=== PATIENT | male | born 1965 | race Caucasian/White ===

== ENCOUNTER 2023-07-28 15:34 | Emergency (ER) | payer OTHER ==
[~2023-07-28] VITALS: Ht 185.4 cm; Wt 109.1 kg
[2023-07-28] MEDS ORDERED: diphenhydrAMINE 50 mg/ml inj IM ONE (16:10)
[2023-07-28] MEDS ORDERED: LORazepam 2 mg/ml vial IM ONE (16:10)
[2023-07-28] MEDS ORDERED: OLANZapine **IM** 10 mg inj. IM ONE (16:10)
[2023-07-28] MEDS ORDERED: normal saline 1000ML IV soln IVB ONE ×2 (16:20→16:30)
[2023-07-28] MEDS ORDERED: aspirin 81mg tab.chew PO ONE (16:40)
[2023-07-28] MEDS ORDERED: acetaminophen 1,000mg/100ml IV 100 ML IV ONE (16:55)
[2023-07-28] MEDS ORDERED: diltiazem 5mg/ml 5ml inj. IV ONE (17:00)
[2023-07-28] MEDS ORDERED: aspirin 300mg supp.rect RC ONE (17:05)
[2023-07-28 17:48] LABS: BASOPHILS % (AUTO) 0.1 % (0-1); EOSINOPHILS % (AUTO) 0 % (0-6); LYMPHOCYTES # (AUTO) 0.2 X10'3 (1.1-4.8); MEAN CORPUSCULAR VOLUME 93.9 FL (78-98); MONOCYTES # (AUTO) 1.1 X10'3 (0-0.9); MONOCYTES % (AUTO) 6.2 % (2-12); RED CELL DISTRIBUTION WIDTH 12.2 % (11.5-14.5)
[2023-07-28 17:51] LABS: HEMATOCRIT 48.8 % (42.0-52.0); HEMOGLOBIN 16.6 g/dl (14.0-17.9); LYMPHOCYTES % (AUTO) 1.2 % (21-51); MEAN CORPUSCULAR HEMOGLOBIN 31.9 PG (27.0-31.0); MEAN CORPUSCULAR HGB CONC 33.9 g/dL (33.0-36.5); MEAN PLATELET VOLUME 8.4 FL (7.4-10.4); NEUTROPHILS # (AUTO) 16.4 X10'3 (1.8-7.7); NEUTROPHILS % (AUTO) 92.5 % (42-75); PLATELET COUNT 273 X10'3 (140-440); WHITE BLOOD COUNT 17.7 X10'3 (4.5-11.0)
[2023-07-28 17:57] LABS: ALANINE AMINOTRANSFERASE 50 U/L (12-78); ALBUMIN 4.5 G/DL (3.4-5.0); ALBUMIN/GLOBULIN RATIO 1.5 (1.1-1.5); ALKALINE PHOSPHATASE 65 IU/L (46-116); ANION GAP 14 (8-16); ASPARTATE AMINO TRANSFERASE 61 U/L (10-37); BILIRUBIN,TOTAL 0.9 MG/DL (0.1-1.0); BLOOD UREA NITROGEN 15 MG/DL (7-18); BUN/CREATININE RATIO 11.7 (10.0-20.0); CALCIUM 8.8 MG/DL (8.5-10.1); CHLORIDE 104 MMOL/L (99-107); CREATININE 1.28 MG/DL (0.60-1.10); GLUCOSE 118 MG/DL (70-104); POTASSIUM 3.9 MMOL/L (3.5-5.1); SODIUM 138 MMOL/L (135-145); TOTAL CARBON DIOXIDE 19.6 MMOL/L (24-32); TOTAL PROTEIN 7.5 G/DL (6.4-8.2); eCRCL 73 ML/MIN; eGFR 58 ML/MIN
[2023-07-28 18:00] LABS: C-REACTIVE PROTEIN 0.62 MG/DL (0.0-0.5)
[2023-07-28 18:23] LABS: ETHANOL < 10 MG/DL (<10); MAGNESIUM 2.2 MG/DL (1.5-2.4); THYROID STIMULATING HORMONE 0.97 ulU/ml (0.34-4.50)
[2023-07-28 18:26] LABS: CREATINE KINASE 1923 U/L (39-308)
[2023-07-28 19:51] LABS: BILIRUBIN,URINE NEGATIVE (Neg); CLARITY,URINE SLIGHTLY CLOUDY (Clear); COLOR,URINE YELLOW (Yellow); GLUCOSE, URINE NEGATIVE (Neg); KETONES,URINE 15 mg/dl (Neg); LEUKOCYTE ESTERASE ,URINE NEGATIVE (Neg); NITRITES, URINE NEGATIVE (Neg); OCCULT BLOOD,URINE LARGE (Neg); PH,URINE 5.5 (4.8-8.0); PROTEIN,URINE NEGATIVE (Neg); UROBILINOGEN,URINE 0.2 E.U/dL (0.2-1.0)
[2023-07-28 19:56] LABS: UA COLLECTION TYPE CLN CATCH MIDSTREAM
[2023-07-28 19:58] LABS: WBC,URINE 0-4 /HPF (0-4)
[2023-07-28 19:59] LABS: BACTERIA,URINE FEW /HPF (Neg); MUCUS STRANDS FEW /LPF (Neg); SQUAMOUS EPITHELIAL CELL,UR FEW /LPF (FEW)
[2023-07-28 20:00] LABS: URIC ACID CRYSTALS 3+ /HPF (NEGATIVE)
[2023-07-28 20:09] LABS: URINE AMPHETAMINE SCREEN NEGATIVE (Neg); URINE BARBITUATE SCREEN NEGATIVE (Neg); URINE BENZODIAZEPINES SCREEN NEGATIVE (Neg); URINE CANNABINOID SCREEN POSITIVE (Neg); URINE COCAINE SCREEN NEGATIVE (Neg); URINE METHADONE SCREEN NEGATIVE (Neg); URINE OPIATE SCREEN NEGATIVE (Neg); URINE PHENCYCLIDINE SCREEN NEGATIVE (Neg)
[2023-07-28] MEDS ORDERED: CefTRIAXone/D5W-Rocephin 1gm 50 ML IV ONE (21:15)
[2023-07-28] MEDS ORDERED: vancomycin/NS 1 GM ADD-VANTAGE 250 ML IV ONE (21:15)
[2023-07-28 22:46] LABS: SYPHILIS SCREENING TEST POC NEGATIVE (Negative)
[2023-07-29 08:42] VITALS: TEMP 99.2
[2023-07-29 16:40] VITALS: BP 125/72; PULSE 77; RESP 16; O2SAT 98
== END 2023-07-29 16:42 | disposition home or self-care (01) ==
LOC: EEVIPCON 15:34 → ER 15:34
DX: S00.03XA Contusion of scalp, initial encounter (principal); G40.909 Epilepsy, unspecified, not intractable, without status epilepticus; Z20.822 Contact with and (suspected) exposure to COVID-19; M62.82 Rhabdomyolysis; F23 Brief psychotic disorder; Z79.899 Other long term (current) drug therapy; W18.39XA Other fall on same level, initial encounter; Y93.89 Activity, other specified; Y92.89 Other specified places as the place of occurrence of the external cause; Y99.8 Other external cause status
CPT/HCPCS: 36415; 70450; 71045; 71250; 80053; 80305; 80320; 81001; 82550; 83605; 83735; 83874; 84145; 84443; 84484; 85025; 86140; 86592; 87040; 87502; 87503; 87811; 93005; 96361; 96372; 96374; 96375; 99291; J0131; J0696; J1200; J2060; J3370; J3490; J7030

== ENCOUNTER 2024-07-05 12:48 | Emergency (ER) | payer MEDICAID, SELFPAY ==
[~2024-07-05] VITALS: Ht 182.9 cm; Wt 90.0 kg
[2024-07-05 13:19] VITALS: BP 119/59; PULSE 91; TEMP 98.2; O2SAT 99
[2024-07-05 13:44] VITALS: RESP 20
[2024-07-05] MEDS ORDERED: KEP500T PO (21:05)
== END 2024-07-05 13:50 | disposition home or self-care (01) ==
LOC: ER 12:48
DX: F10.239 Alcohol dependence with withdrawal, unspecified (principal); R56.9 Unspecified convulsions; M54.9 Dorsalgia, unspecified; R45.1 Restlessness and agitation; F12.90 Cannabis use, unspecified, uncomplicated; Z98.890 Other specified postprocedural states
CPT/HCPCS: 99281

== ENCOUNTER 2024-07-05 14:42 | Emergency (ER) | payer MEDICAID, SELFPAY ==
[~2024-07-05] VITALS: Ht 185.4 cm; Wt 100.0 kg
[2024-07-05 16:27] VITALS: BP 143/102
[2024-07-05 17:41] LABS: BASOPHILS % (AUTO) 0.3 % (0-1); EOSINOPHILS % (AUTO) 0 % (0-6); HEMATOCRIT 48.3 % (42.0-52.0); HEMOGLOBIN 16.5 g/dl (14.0-17.9); LYMPHOCYTES # (AUTO) 0.5 X10'3 (1.1-4.8); LYMPHOCYTES % (AUTO) 3.3 % (21-51); MEAN CORPUSCULAR HEMOGLOBIN 31.2 PG (27.0-31.0); MEAN CORPUSCULAR HGB CONC 34.1 g/dL (33.0-36.5); MEAN CORPUSCULAR VOLUME 91.5 FL (78-98); MEAN PLATELET VOLUME 7.8 FL (7.4-10.4); MONOCYTES # (AUTO) 0.5 X10'3 (0-0.9); MONOCYTES % (AUTO) 3.9 % (2-12); NEUTROPHILS # (AUTO) 12.7 X10'3 (1.8-7.7); NEUTROPHILS % (AUTO) 92.5 % (42-75); PLATELET COUNT 279 X10'3 (140-440); RED BLOOD COUNT 5.28 X10'6 (4.70-6.10); RED CELL DISTRIBUTION WIDTH 12.6 % (11.5-14.5); WHITE BLOOD COUNT 13.7 X10'3 (4.5-11.0)
[2024-07-05 18:10] LABS: ALANINE AMINOTRANSFERASE 40 U/L (12-78); ALBUMIN 4.3 G/DL (3.4-5.0); ALBUMIN/GLOBULIN RATIO 1.5 (1.1-1.5); ALKALINE PHOSPHATASE 70 IU/L (46-116); ANION GAP 7 (8-16); ASPARTATE AMINO TRANSFERASE 45 U/L (10-37); BLOOD UREA NITROGEN 11 MG/DL (7-18); BUN/CREATININE RATIO 11.6 (10.0-20.0); CALCIUM 8.6 MG/DL (8.5-10.1); CHLORIDE 99 MMOL/L (99-107); CREATININE 0.95 MG/DL (0.60-1.10); GLUCOSE 114 MG/DL (70-104); SODIUM 134 MMOL/L (135-145); TOTAL CARBON DIOXIDE 28.4 MMOL/L (24-32); TOTAL PROTEIN 7.2 G/DL (6.4-8.2); eCRCL 97 ML/MIN; eGFR 82 ML/MIN
[2024-07-05 19:40] VITALS: PULSE 71; TEMP 97.6; O2SAT 99
[2024-07-05] MEDS: levetiracetam 250mg tablet PO ONE (20:21)
[2024-07-05 20:22] VITALS: RESP 14
[2024-07-05] MEDS: ketorolac trometh 15mg/ml vial 15 MG/ML ML IM ONE (20:22)
[2024-07-05] MEDS ORDERED: KEP500T PO (21:05)
== END 2024-07-05 21:16 | disposition home or self-care (01) ==
LOC: ER 14:42
DX: S00.531A Contusion of lip, initial encounter (principal); G40.909 Epilepsy, unspecified, not intractable, without status epilepticus; M54.50 Low back pain, unspecified; F12.90 Cannabis use, unspecified, uncomplicated; X58.XXXA Exposure to other specified factors, initial encounter; Y93.89 Activity, other specified; Y92.89 Other specified places as the place of occurrence of the external cause; Y99.8 Other external cause status
CPT/HCPCS: 36415; 80053; 85025; 96372; 99284; J1885